=== PATIENT | male | born 1955 | race Caucasian/White ===

== ENCOUNTER 2016-07-07 08:01 | Day surgery (SDC) | payer BC ==
--- NOTE | ~2016-07-07 | OP ---
Record Of Operation [address] [place]. [address] NAME: EDUAR RUIZ : 55 STATUS : REG [facility] PAT#: [id number] AGE: 60 ADM/REG DATE : 07/07/16 MR#: [id number] REPORT SERV DATE: 07/07/16 DICTATED BY: JODEE ANDERSON III DATE: 07/07/16 REPORT STATUS : Draft TRANSCRIBED BY: MODL DATE: 07/07/16 DATE OF PROCEDURE: 07/07/2016 SURGEON: Jodee Anderson M.D. PROCEDURE: Colonoscopy with biopsies using snare and hot snare as well as cold biopsy and hot biopsy techniques. PREOPERATIVE DIAGNOSIS: The patient with a history of multiple polyps in the past with polyps from his last colonoscopy on 06/06/2013 that showed an area of 100 cm that was favored to be a serrated adenoma as well as some tubular adenomas removed at 80 cm and another tubular adenoma at 15 cm as well as some lymphoid aggregates that were removed along the way. POSTOPERATIVE DIAGNOSIS: Multiple polyps, diverticulosis primarily in the sigmoid colon and descending colon regions. FINDINGS: A polypoid lesion that was less than a 0.5 cm at the 25 cm alberto as well as another flatter polyp adjacent to it that were removed by snare technique with hot snare technique used. The other area at 90 cm at 85 cm where there a couple of other small more sessile polyps that were under 4 mm in size were removed by cold biopsy technique as well as hot biopsy bivalve biopsy technique. ANESTHESIA: Anesthesia was general with propofol with the patient in margarette-knife left lateral decubitus position. PROCEDURE IN DETAIL: The patient was placed in left lateral decubitus position and the Olympus scope was introduced after dilation. The patient had 2 to 3+ smooth prostate enlargement without nodularity. There were grade 2 internal hemorrhoids seen. The scope was advanced through a very poor prep with lots of diverticular cast and much murky tissue covering fluid that was washed away to see and get adequate exposure. The scope was advanced up through the rectum, up to the rectal valves, up to the sigmoid colon where a polypoid lesion was seen at 25 cm which was removed by hot snare technique. An adjacent lesion about 1 cm distal was removed by hot biopsy forceps technique. The scope was advanced with some difficulty due to tortuosity and diverticular changes seen along the areas to the splenic flexure where the diverticular changes diminished. Scope was advanced along the transverse colon to the hepatic flexure down the ascending colon to the cecal bulb, and ileocecal valve appeared to be unremarkable. There were no lesions within the cecum. A slow withdrawal time was carried out. The scope was slowly withdrawn with no difficulties irrigating as we went along. Some additional polyps were seen at 90 cm to 85 cm level and these were biopsied by cold biopsy technique. These were submitted separately to Pathology. The scope was then withdrawn slowly identifying no additional polyps and the site from previous polypectomy at 25 cm was seen. Scope was withdrawn further and a few lymphoid nodule seen, but no additional polyps. Record Of Operation [address] [place]. [address] NAME: EDUAR RUIZ : 55 STATUS : REG [facility] PAT#: [id number] AGE: 60 ADM/REG DATE : 07/07/16 MR#: [id number] REPORT SERV DATE: 07/07/16 DICTATED BY: JODEE ANDERSON III DATE: 07/07/16 REPORT STATUS : Draft TRANSCRIBED BY: ELMER DATE: 07/07/16 Retroflexed view showed grade 2 internal hemorrhoids with no additional findings. The scope was withdrawn, procedure concluded. The patient tolerated the procedure well. The findings were a couple of polyps at 25 cm that were biopsied and retrieved and another 2 polyps found at 85 cm and 90 cm that were removed and retrieved. The patient tolerated the procedure well. The retraction time on this case was 18 minutes. SARA/ELMER Jodee Anderson III, M.D. / [id number] CC: Amy Alfredo III, DO
[~2016-07-07 08:01] MED LIST: ASAB PO; FISH-EPA1000 MG PO; FOLIC PO; HYZAAR 50/12.51 TAB PO; LEVOTHYROXIN75 MCG PO; LEVOXYL50 MCG PO; LIPITOR40 PO; LOFIB160 PO; LOP50 PO; LOPID6 PO; VITAMIN B-121000 MC1 SL; VITAMIN D1000 UNI1 PO; VITAMIN D31000 UNIT PO; ZOCOR40 PO
== END 2016-07-07 23:59 | disposition home or self-care (01) ==
LOC: DMU 08:01
PROVIDERS: Surgery
PROC: 0DBE8ZZ Excision of Large Intestine, Via Natural or Artificial Opening Endoscopic (ICD-10-PCS; principal; 2016-07-07 09:30)
DX: D12.6 Benign neoplasm of colon, unspecified (principal); K57.30 Diverticulosis of large intestine without perforation or abscess without bleeding; I10 Essential (primary) hypertension; E03.9 Hypothyroidism, unspecified; E78.00 Pure hypercholesterolemia, unspecified; G47.33 Obstructive sleep apnea (adult) (pediatric); Z79.82 Long term (current) use of aspirin; Z79.899 Other long term (current) drug therapy
CPT/HCPCS: 88305